=== PATIENT | female | born 1970 | race Caucasian/White ===

== ENCOUNTER 2016-07-25 14:31 | Emergency (ER) | payer OTHER ==
[~2016-07-25 14:31] MED LIST: FLEXERIL PO; IBUPROFEN PO; INDOMETHACIN25 MG PO; LEXAPRO PO; LIPITOR PO; PERCOCET5/325 PO; PREMARIN PO; PROTONIX PO; SYNTHROID PO
== END 2016-07-25 14:45 | disposition home or self-care (01) ==
LOC: CED 14:31
DX: F48.8 Other specified nonpsychotic mental disorders (principal); F41.9 Anxiety disorder, unspecified; E11.9 Type 2 diabetes mellitus without complications; W86.8XXA Exposure to other electric current, initial encounter; Y92.69 Other specified industrial and construction area as the place of occurrence of the external cause
CPT/HCPCS: 99282; 99283